=== PATIENT | female | born 1975 | race Two or more races ===

== ENCOUNTER 2023-08-07 14:37 | Emergency (ER) | payer OTHER ==
[2023-08-07 14:55] VITALS: RESP 18; BMI 32.5
[2023-08-07] MEDS ORDERED: KETOROLAC TROMETHAMINE 30 MG/1 ML VIAL IM ONE (18:24)
[2023-08-07] MEDS ORDERED: KETOROLAC TROMETHAMINE 30 MG/1 ML VIAL ONE (18:27)
[2023-08-07 18:34] VITALS: BP 125/82; PULSE 78; TEMP 98.7
== END 2023-08-07 18:47 | disposition home or self-care (01) ==
LOC: JERFT 14:37
PROC: 3E0233Z Introduction of Anti-inflammatory into Muscle, Percutaneous Approach (ICD-10-PCS; principal; 2023-08-07)
DX: M25.562 Pain in left knee (principal); S83.92XA Sprain of unspecified site of left knee, initial encounter; X50.0XXA Overexertion from strenuous movement or load, initial encounter
CPT/HCPCS: 73562-TC-LT-FY; 99284-25